=== PATIENT | female | born 1995 | race Caucasian/White ===

== ENCOUNTER 2017-12-05 19:12 | Emergency (ER) | payer MEDICAID, OTHER ==
[2017-12-05 19:27] VITALS: BP 100/69
--- NOTE | 2017-12-05 20:13 | UC ---
Celio Allen Natalie, scribed for Home Chacon MD on 12/05/17 at 1947 . Throat Pain/Nasal Genaro HPI - HPI Summary HPI Summary: The patient is a 22 y/o F presenting to the [facility] c/o sore throat for three days. The pain is rated 8/10 in severity. Today, she has had pain swallowing with intermittent bellyaches. She denies swelling of the tongue and lips. - History of Current Complaint Chief Complaint: UCRespiratory Stated Complaint: SORE THROAT Time Seen by Provider: 12/05/17 19:30 Hx Obtained From: Patient Hx Last Menstrual Period: <1 WEEK AGO Onset/Duration: Sudden Onset, Lasting Days, Still Present Severity: Moderate Pain Intensity: 8 Pain Scale Used: 0-10 Numeric Cough: None Associated Signs & Symptoms: Positive: Other - bellyaches, pain with swallowing , no swelling of tongue or lips - Allergies/Home Medications Allergies/Adverse Reactions: Allergies Allergy/AdvReac Type Severity Reaction Status Date / Time No Known Allergies Allergy Verified 12/05/17 19:27 Home Medications: Home Medications Acetaminophen [Mapap] 500 mg PO PRN 12/05/17 [History] D-Methorphan/PE/Acetaminophen [Vicks Dayquil Liquicaps] 1 cap PO PRN 12/05/17 [ History] PMH/Surg Hx/FS Hx/Imm Hx Other Cardiovascular History: NEGATIVE: hypertension Other Respiratory History: NEGATIVE: asthma - Surgical History Surgical History: None - Family History Known Family History: Negative: Hypertension - Social History Alcohol Use: Rare Substance Use Type: None Smoking Status (MU): Never Smoked Tobacco Review of Systems ENT: Sore Throat, Other - pain with swallowing, no swelling of tongue or lips Gastrointestinal: Other - stomach aches All Other Systems Reviewed And Are Negative: Yes Physical Exam - Summary Physical Exam Summary: VITAL SIGNS: Reviewed. GENERAL: Patient is a well-developed and nourished female who is lying comfortable in the stretcher. Patient is not in any acute respiratory distress. HEAD AND FACE: Normocephalic EYES: PERRLA, EOMI x 2. EARS: Hearing grossly intact. MOUTH: Erythematous pharynx. No exudates. NECK: Supple, trachea is midline, no adenopathy, no JVD, no carotid bruit. CHEST: Symmetric, no tenderness at palpation LUNGS: Clear to auscultation bilaterally. No wheezing or crackles. CVS: Regular rate and rhythm, S1 and S2 present, no murmurs or gallops appreciated. ABDOMEN: Soft, non-tender. Bowel sounds are normal. No abdominal abnormal pulsations. EXTREMITIES: Full ROM in all major joints, no edema, no cyanosis or clubbing. NEURO: Alert and oriented x 3. No acute neurological deficits. Speech is normal and follows commands. SKIN: Dry and warm Triage Information Reviewed: Yes Vital Signs: Initial Vital Signs Temp 98.5 F 12/05/17 19:23 Pulse 47 12/05/17 19:23 Resp 16 12/05/17 19:23 BP 100/69 12/05/17 19:23 Pulse Ox 99 12/05/17 19:23 Vital Signs Reviewed: Yes Throat Pain/Nasal Course/Dx - Course Course Of Treatment: The patient is a 22 y/o F presenting to the [facility] c/o sore throat for three days. The pain is rated 8/10 in severity. Today, she has had pain swallowing with intermittent bellyaches. She denies swelling of the tongue and lips. Strep test is positive for pharyngitis. She will be discharged home with prescription for Augmentin and follow up with PCP. I discussed all the findings and test results with the patient. Patient was instructed to return to the urgent care or go to ER immediately if any of the symptoms return or worsens. Plan of care was discussed with the patient, and patient understands and agrees. All questions were answered to patient satisfaction. There were no further complaints or concerns. - Differential Dx/Diagnosis Differential Diagnosis/HQI/PQRI: Laryngitis, Pharyngitis, Tonsillitis Provider Diagnoses: pharyngitis Discharge - Sign-Out/Discharge Documenting (check all that apply): Discharge/Admit/Transfer - Discharge Plan Condition: Stable Disposition: HOME Prescriptions: Amoxicillin/Clavulanate TAB* [Augmentin TAB 875*] 875 mg PO BID #20 tab Patient Education Materials: Strep Throat (ED) Referrals: [facility] [place] [facility] REFERRAL [Outside] No Primary Care Phys,NOPCP [Primary Care Provider] - Additional Instructions: Return to Urgent Care or emergency department for any new or worsening symptoms. - Billing Disposition and Condition Condition: STABLE Disposition: HOME The documentation as recorded by the Celio putnam Natalie accurately reflects the service I personally performed and the decisions made by me, Home Chacon MD.
== END 2017-12-05 20:23 | disposition home or self-care (01) ==
LOC: UCEAST 19:12
DX: J02.9 Acute pharyngitis, unspecified (principal)
CPT/HCPCS: 87651; 99202; G0463